=== PATIENT | male | born 1975 | race Caucasian/White ===

== ENCOUNTER 2024-03-06 08:50 | Emergency (ER) | payer OTHER, SELFPAY ==
[2024-03-06 08:56] VITALS: BP 175/104; PULSE 89; TEMP 36.8; O2SAT 100; BMI 35.2
--- NOTE | 2024-03-06 09:04 | XR_ITS ---
The [address] [address] Patient Name: KLEBER MOULTON MRN: [facility]:[id number] date: 1975 Sex: M Assigned Patient Location: ER Current Patient Location: ER Accession/Order Number: [id number] Exam Date: 03/06/2024 09:11 Report Date: 03/06/2024 09:41 At the request of: RENEE SEGURA Procedure: XR hand LT min 3V PROCEDURE: XR wrist LT min 3V, XR hand LT min 3V HISTORY: trauma COMPARISON: None. FINDINGS: BONES:No fracture, acute abnormality, or significant arthropathy. Mild positive ulnar variance (normal variant). SOFT TISSUES:No visible soft tissue swelling. EFFUSION:None visible. OTHER: Negative. XR/XR hand LT min 3V IMPRESSION: 1. No acute bone abnormality. Electronically authenticated by: JENNI RATLIFF Date: 03/06/2024 09:41
--- NOTE | 2024-03-06 09:09 | ED_ITS ---
HPI HPI - General Adult General Chief complaint: Wound/Laceration Stated complaint: upper extremity injury Time Seen by Provider: 03/06/24 09:04 Mode of arrival: walk-in History of Present Illness HPI narrative: The patient is coming to us with a work injury, he was at work when the object he works when it is almost 800 pounds of metal fell on his left hand, he is complaining of left hand pain mostly in the second third and the fourth finger in addition to a laceration to the middle finger of the left hand, the patient also has some left wrist pain There was no other injury and the patient tetanus booster was more than 5 years old Related Data Home Medications ?Medication ?Instructions ?Recorded ?Confirmed amlodipine 10 mg tablet 10 mg PO DAILY 03/06/24 03/06/24 venlafaxine 150 mg 150 mg PO DAILY 03/06/24 03/06/24 capsule,extended release 24 hr Previous Rx's ?Medication ?Instructions ?Recorded ibuprofen 600 mg tablet 600 mg PO Q8H PRN pain #20 tabs 03/06/24 Allergies Allergy/AdvReac Type Severity Reaction Status Date / Time No Known Drug Allergies Allergy Verified 03/06/24 08:56 Opioid HPI Opioid Management Most Recent Opioid Data: Last Pain Scale 6 03/06/24 09:05 03/06/24 Review of Systems ROS Status of ROS 10 or more systems reviewed and unremark able except as noted in history and below PFSH PFSH Social History Little interest or pleasure in doing things: not at all Feeling down, depressed, or hopeless: not at all Exam Narrative Exam Narrative: Nurses notes and vital signs reviewed and patient is not hypoxic. Left hand exam: Left hand examination showed that the patient have no vascular injury detected there is a good capillary refill in all the fingers and there is a small hematoma developing in the left index finger the patient also have a laceration just distal to the proximal interphalangeal joint on the middle finger it is almost 1.5 cm and macerated edges and no foreign body The patient have a good radial pulse on the left forearm and there is no active bleeding Also tenderness upon palpation of the second finger as well as the third and fourth finger where the contusion happened General: Well-appearing and in no apparent distress. Skin: Warm, dry, no pallor noted. No rash. Head: Normocephalic, atraumatic. Neck: Supple, non-tender. Respiratory: No accessory muscle use or respiratory distress. Lungs are clear to auscultation, no wheezing, rales or rhonchi Chest Wall: no tenderness Back: No midline thoracic or lumbar vertebral tenderness. No CVA tenderness Constitutional Vital Signs, click to edit/add: Last Vital Signs Temp 98.2 F 03/06/24 08:56 Pulse 80 03/06/24 10:12 Resp 18 03/06/24 10:12 BP 136/86 03/06/24 10:12 Pulse Ox 98 03/06/24 10:12 O2 Del Method Room Air 03/06/24 08:56 Course Vital Signs Vital signs: Vital Signs Temperature 98.2 F 03/06/24 08:56 Pulse Rate 89 03/06/24 08:56 Respiratory Rate 18 03/06/24 08:56 Blood Pressure 175/104 H 03/06/24 08:56 Pulse Oximetry 100 03/06/24 08:56 Oxygen Delivery Method Room Air 03/06/24 08:56 Temperature 98.2 F 03/06/24 08:56 Pulse Rate 80 03/06/24 10:12 Respiratory Rate 18 03/06/24 10:12 Blood Pressure 136/86 03/06/24 10:12 Pulse Oximetry 98 03/06/24 10:12 Oxygen Delivery Method Room Air 03/06/24 08:56 Medical Decision Making MDM Narrative Medical decision making narrative: X-ray of the right hand and wrist showed no acute pathology The patient was provided with a booster for his tetanus Toradol IM for pain Also a nerve block applied to the left middle finger at the carpal phalangeal joint after cleaning the area applied 2 cc of 1% lidocaine Patient after that needed some local 1% lidocaine also injected to infiltrate the area of the wound The patient then after exploring the wound and making sure the patient have a full range of movement in his finger 3 stitches of 4-0 Prolene applied The patient tolerated the procedure well finger splint applied He will rest his left hand and keep the wound clean and dry for the next 5 to 7 days to remove stitches after 5 to 7 days follow-up with occupational health as outpatient also to rest his hand for the next few days and at least keep the wound clean and dry for the next 7 days Discharge Plan Discharge Chief Complaint: Wound/Laceration Clinical Impression: Laceration, Contusion of hand Patient Disposition: Home, Self-Care Time of Disposition Decision: 10:07 Condition: Good Prescriptions / Home Meds: New ibuprofen 600 mg tablet 600 mg PO Q8H PRN (Reason: pain) Qty: 20 0RF No Action amlodipine 10 mg tablet 10 mg PO DAILY venlafaxine 150 mg capsule,extended release 24hr 150 mg PO DAILY Print Language: Chinese Instructions: Care For Your Stitches (DC), Contusion in Adults (ED) Referrals: Physician,Non-Staff, MD [Primary Care Provider] - 1 week Discharge Date/Time: 03/06/24 10:13
--- NOTE | 2024-03-06 09:09 | XR_ITS ---
The [address] [address] Patient Name: KLEBER MOULTON MRN: [facility]:[id number] date: 1975 Sex: M Assigned Patient Location: ER Current Patient Location: ER Accession/Order Number: [id number] Exam Date: 03/06/2024 09:11 Report Date: 03/06/2024 09:41 At the request of: RENEE SEGURA Procedure: XR wrist LT min 3V PROCEDURE: XR wrist LT min 3V, XR hand LT min 3V HISTORY: trauma COMPARISON: None. FINDINGS: BONES:No fracture, acute abnormality, or significant arthropathy. Mild positive ulnar variance (normal variant). SOFT TISSUES:No visible soft tissue swelling. EFFUSION:None visible. OTHER: Negative. XR/XR wrist LT min 3V IMPRESSION: 1. No acute bone abnormality. Electronically authenticated by: JENNI RATLIFF Date: 03/06/2024 09:41
[2024-03-06] MEDS: ADACEL DIPH,PERTUSS(ACELL),TET VAC/PF 0.5 ML ADULT SYRINGE IM (09:46)
[2024-03-06] MEDS: KETOROLAC TROMETHAMINE 60 MG/2 ML VIAL IM (09:47)
[2024-03-06] MEDS: LIDOCAINE HCL 1% 100 MG/10 ML MDV INJ (09:48)
[2024-03-06 10:12] VITALS: BP 136/86; PULSE 80; O2SAT 98
== END 2024-03-06 10:13 | disposition home or self-care (01) ==
PROVIDERS: Emergency Provider Emergency Medicine
DX: S61.213A Laceration without foreign body of left middle finger without damage to nail, initial encounter (principal); S67.22XA Crushing injury of left hand, initial encounter; S67.193A Crushing injury of left middle finger, initial encounter; S67.195A Crushing injury of left ring finger, initial encounter; Z23 Encounter for immunization; S60.222A Contusion of left hand, initial encounter; W31.89XA Contact with other specified machinery, initial encounter; X58.XXXA Exposure to other specified factors, initial encounter
CPT/HCPCS: 12001; 73110; 73130; 90471; 90715; 96372; 99284; J1885

== ENCOUNTER 2024-12-13 09:16 | Emergency (ER) | payer OTHER, SELFPAY ==
--- OUTSIDE RECORDS SUMMARY | 2024-12-13 09:20 | XMS_ITS | Clinical Summary ---
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 270 tablet 3 01/02/2014 Active lisinopril (ZESTRIL) 20 mg tablet Take 1 tablet by mouth once daily. 90 tablet 3 01/02/2014 Active omeprazole (PRILOSEC) 20 mg capsule Take 1 capsule by mouth once daily. 90 capsule 3 01/02/2014 Active Active Problems Problem Noted Date Diagnosed Date GERD (gastroesophageal reflux disease) 0 Anxiety 09/30/2009 HTN (hypertension) 09/30/2009 Abnormal liver function test Overview (10/08/2009): Ex-Etoh Hyperlipidemia Immunizations Immunization Administration Dates Next Due tetanus diphtheria (Td) vaccine, adult, non-adso rbed 10/10/2009 Family History Medical History Relation Comments Alcohol/Drug Father age 50's ci rrhosis/alcohol use None Maternal Grandfather Old age 90' s None Mother None Other 2 1/2 siblings n o contact None Sister Relation Status Comments Father Maternal Grandfather Mother Other Sister Social History Tobacco Use Types Packs/Day Years Used Date Smoking Tobacco: Every Day Cigarettes 0.5 20 Smokeless Tobacco: Current Alcohol Use Standard Drinks/Week Comments No 0 (1 standard drink = 0.6 oz pur e alcohol) Sex and Gender Information Value Date Recorded Sex Assigned at Not on file Legal Sex Male 8:30 AM EST Gender Identity Not on file Sexual Orientation Not on file 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 Not on file Not on file Not on file Last Filed Vital Signs Vital Sign Reading Time Taken Comments Blood Pressure 122/77 08/05/2013 11:10 AM EDT Pulse 102 08/05/2013 11:10 AM EDT Temperature - - Respiratory Rate 16 06/29/2011 9:22 AM EDT Oxygen Saturation - - Inhaled Oxygen Concentration - - Weight 102.1 kg (225 lb) 08/05/2013 11:10 AM EDT Height 177 cm (5' 9.69 ) 08/22/2012 11:14 AM EDT Body Mass Index 32.58 08/22/2012 11:14 AM EDT Plan of Treatment Health Maintenance Due Date Last Done Comments Anxiety Screening 1992 Depression Screening 1992 HIV Screening 1992 Hepatitis B Vaccine (1 of 3 - 19+ 3-dose series) 1993 DTaP,Tdap,Td Vaccine (1 - Tdap) 10/11/2009 0 Lipid Screening 12/27/2015 12/26/2010, 10/07/2009 CT Colonography 10/14/2019 Cologuard (FIT-DNA) 10/14/2019 Colonoscopy 10/14/2019 Colorectal Cancer Screening 10/14/2019 Diabetes Screening 10/14/2019 12/26/2010, 10/07/2009 Fecal Occult Blood 10/14/2019 Sigmoidoscopy 10/14/2019 Pneumococcal Vaccine: 50+ (1 of 1 - PCV) 2024 Shingrix Vaccine (1 of 2) 2024 Influenza Vaccine (#1) 2024 Hepatitis C Screening Completed 10/21/2009 Procedures Procedure Name Priority Date/Time Associated Diagnosis Comments COMPREHENSIVE METABOLIC PANEL Routine 12/26/2010 10:48 AM EDT HTN (hypertension) Abnormal liver function test LIPID PANEL, FASTING Routine 12/26/2010 10:48 AM EDT HTN (hypertension) HEP REMOTE PANEL BL Routine 10/21/2009 4 :00 PM EDT Nonspecific Abnormal Results of Liver Function Study from Last 3 Months or Most Recently Relevant to Health Maintenance Results * (ABNORMAL) LIPID PANEL BASIC (12/26/2010 10:48 AM EDT) Triglyceride 82 30 - 149 mg/dL [facility] Cholesterol, Total 164 100 - 199 mg/dL [facility] HDL Cholesterol 38(L) >45 mg/dL [facility] VLDL Cholesterol 16 6 - 40 mg/dL [facility] LDL Cholesterol, Calculated 110 60 - 129 mg/dL [facility] Fasting Time 12 hrs [facility] TC:HDL Ratio 4.32 1.00 - 5.00 [facility] LDL:HDL Ratio 2.89 0.50 - 3.55 [facility] Non HDL Cholesterol 126 90 - 159 mg/dL [facility] Blood specimen (specimen) BLOOD SPECIMEN / Unknown 12/26/2010 10:48 AM EDT 12/26/2010 10:51 AM EDT Renetta Guzman MD LABORATORY Final Result Performing Organization Address City/State/[facility] Co de Phone Number [facility] [address] [place] [address] * COMP METABOLIC PANEL (12/26/2010 10:48 AM EDT) Pathologist [facility] Protein, Total 6.6 6.0 - 8.4 g/dL [facility] Albumin 4.0 3.5 - 5.0 g/dL [facility] Calcium 9.2 8.5 - 10.5 mg/dL [facility] Bilirubin, Total 0.2 0.0 - 1.5 mg/dL [facility] Alkaline Phosphatase 76 40 - 150 U/L [facility] AST 26 7 - 40 U/L [facility] Glucose 90 65 - 100 mg/dL [facility] BUN 15 10 - 25 mg/dL [facility] Creatinine 0.79 0.70 - 1.40 mg/dL [facility] Sodium 138 135 - 146 mmol/L [facility] Potassium 4.1 3.5 - 5.0 mmol/L [facility] Chloride 103 98 - 110 mmol/L [facility] CO2 28 23 - 32 mmol/L [facility] Anion Gap 7 0 - 15 mmol/L [facility] ALT 50 5 - 50 U/L [facility] eGFR- >60 [facility] eGFR-All Other Races >60 . [facility] Comment: eGFR (Estimated GFR) Units of measure: mL/min/1.73 meters squared eGFR is derived from the reexpressed MDRD Study equation using the following parameters: serum creatinine, age, gender and race. The creatinine assay has been calibrated to be traceable to IDMS. An eGFR <60 mL/min/1.73m2 for >3 months is consistent with chronic kidney disease. Refer to KDOQI guidelines for clinical interpretation. Blood specimen (specimen) BLOOD SPECIMEN / Unknown 12/26/2010 10:48 AM EDT 12/26/2010 10:51 AM EDT Renetta Guzman MD LABORATORY Final Result Performing Organization Address [facility] Co de Phone Number [facility] [address] [place] [address] * HEP REMOTE PANEL BL (10/21/2009 4:00 PM EDT) Hep B Core Ab, Total Negative NEGAT [facility] Hep C Antibody IA Negative NEGAT [facility] HBsAg Negative NEGAT [facility] Hep B Surface Ab, Qual Negative NEGAT [facility] Comment: A negative Hepatitis B Surface Antibody is indicative of: 1)no prior exposure to HBV, 2)lack of antibody response to an acute or chronic HBV infection, 3)lack of antibody response to HBV vaccination, or, 4)loss of immunity that followed either vaccination or infection. Blood specimen (specimen) BLOOD SPECIMEN / Unknown 10/21/2009 4:00 PM EDT 10/22/2009 1:13 AM EDT us Renetta Guzman MD LABORATORY Final Result Performing Organization Address [facility] Co de Phone Number [facility] [address] [place] [address] from Last 3 Months or Most Recently Relevant to Health Maintenance Insurance [employer]
--- OUTSIDE RECORDS SUMMARY | 2024-12-13 09:20 | XMS_ITS | CCD ---
Author Organization [facility] Inform ion Partnership [facility] Care Team Providers Care Mixing Machine Attendant Name Role Phone MAGDALENO QUEEN Admitting Unavailable MAGDALENO QUEEN Attending Unavailable MAGDALENO QUEEN Consulting Unavailable REQUEST, NONE LISTED Primary Care Unavailable NO FAMILY, PHYSICIAN Primary Care Provider Unava ilable Becki Suarez APRN Attending Provider NO FAMILY, PHYSICIAN Primary Care Unavailable Becki Suarez Attending Unavailable Suarez, Becki D Admitting Unavailable Suarez Becki D Attending Unavailable Suarez Becki D Admitting Unavailable NO FAMILY, PHYSICIAN Primary Care Unavailable Plank DO, Aashish Primary Care Unavailable Plank DO, Aashish Attending Unavailable Plank DO, Aashish Unavailable Unavailable Plank DO, Aashish Unavailable Unavailable Unavailable Unavailable Unavailable Medications Current Medications Medication Drug Class(es) Dates Sig (Normalized) Sig (Original) mirtazapine 7.5 mg oral tablet (2 sources) Start: 02-12-2019 take 1 tablet by mouth once daily at bedtime Mirtazapine 7.5 mg Tablet Active 7.5 MG PO Daily at bedtime 14 February 12, 2019 12:00am Tama (No Known Home Meds) (2 sources) Start: 02-08-2019 Tama (No Known Home Meds) Active February 08, 2019 12:00am 24 hr venlafaxine 75 mg extended release oral capsule (2 sources) Serotonin and Norepinephrine Reuptake Inhibitor Start: 02-12-2019 take 1 capsule by mouth once daily Venlafaxine 75 mg Capsule,Extended Release 24hr Active 75 MG PO Daily February 12, 2019 12:00am Problems Active Problems Problem Classification Problem Date Documented Date Episodic/Chronic Anxiety disorders (6 sources) Posttraumatic stress disorder; Translations: [Anxiety] 02-21-2023 Chronic Comment on above: Problem List clean-u p per request of Phys. EHR Cmte Essential hypertension (2 sources) Essential (primary) hypertension Chronic Malaise and fatigue (2 sources) Chronic fatigue, unspecified; Translations: [Chronic fatigue] Chronic Mood disorders (6 sources) Recurrent major depression; Translations: [Depressive disorder] 02-21-2023 Chronic Comment on above: Problem List clean-u p per request of Phys. EHR Cmte Mood disorders (3 sources) Major depressive disorder, single episode, unspecified; Translations: [Mood disorders] Onset: 02-28-2018 Other nutritional; endocrine; and metabolic disorders (2 sources) Body mass index (BMI) 35.0-35.9, adult Onset: 11-04-2024 11-04-2024 Chronic Other screening for suspected conditions (not mental disorders or infectious disease) (4 sources) Encounter for screening for malignant neoplasm of prostate; Translations: [Prostate cancer screening] Episodic Superficial injury; contusion (1 source) Contusion of left hand, initial encounter; Translations: [Contusion of left hand, initial encounter] Onset: 03-17-2024 Episodic Unclassified (1 source) Annual Visit (chief complaint) Lab Draw (chief complaint) Onset: 11-04-2024 Past or Other Problems Problem Classification Problem Date Documented Da te Episodic/Chronic Fluid and electrolyte disorders (1 source) Hypokalemia; Translations: [HYPOKALEMIA] Onset: 02-28-2018 Episodic Other injuries and conditions due to external causes (1 source) Elevated urine levels of drugs, medicaments and biological substances; Translations: [ELEV URIN LEVELS RX MEDS AND BIO SUBS] Onset: 02-28-2018 Episodic Suicide and intentional self-inflicted injury (3 sources) Suicidal ideations; Translations: [SUICIDAL IDEATIONS] Onset: 02-10-2018 Episodic Results Test Name Value Interpretation Reference Range Facility Laboratory - Chemistry and C hemistry - challengeOrdered By: Aashish Hernandez DO on 11-12-2024 Testosterone Free [Mass/Vol] 2.7 pg/mL Low 7.2-24.0 [facility] 25-hydroxyvitamin D3 [Mass/V ol]Ordered By: Aashish Hernandez DO on 11-05-2024 25-hydroxyvitamin D [Mass/Vol] 36.7 ng/mL 30.0-100.0 [facility] Comment on above: Vitamin D deficiency has been defined by the [place] of[place] and an Endocrine Society practice guideline as alevel of serum 25-OH vitamin D less than 20 ng/mL (1,2).The Endocrine Society went on to further define vitamin Dinsufficiency as a level between 21 and 29 ng/mL (2).1. IOM ([place] of [employer]). 2010. Dietary reference intakes for calcium and D. [place]: The National Academies Press.2. Mike MF, Sam NC, Michaelle GARZA, et al. Evaluation, treatment, and prevention of vitamin D deficiency: an Endocrine Society clinical practice guideline. JCEM. 2010; 96(7):1911-30.Performed by:Leon MEHTA) Comprehensive metabolic 2000 panelOrdered By: Aashish Hernandez DO on 11-05-2024 ALT [Catalytic activity/Vol] 48 U/L High 0-44 [facility] ALP [Catalytic activity/Vol] 92 U/L 44-121 [facility] Comment on above: Effective Septembe r 2024 Alkaline Phosphatase reference interval will be changing to: Age Male Female 0 - 5 days 47 - 127 47 - 127 6 - 10 days 29 - 242 29 - 242 11 - 20 days 109 - 357 109 - 357 21 - 30 days 94 - 494 94 - 494 1 - 2 months 149 - 539 149 - 539 3 - 6 months 131 - 452 131 - 452 7 - 11 months 117 - 401 117 - 401 12 months - 6 years 158 - 369 158 - 369 7 - 12 years 150 - 409 150 - 409 13 years 156 - 435 78 - 227 14 years 114 - 375 64 - 161 15 years 88 - 279 56 - 134 16 years 74 - 207 51 - 121 17 years 63 - 161 47 - 113 18 - 20 years 51 - 125 42 - 106 21 - 50 years 47 - 123 41 - 116 51 - 80 years 49 - 135 51 - 125 >80 years 48 - 129 48 - 129Performed by:Leon Stanton (TIFFANIE) Bilirubin [Mass/Vol] 0.5 mg/dL 0.0-1.2 [facility] Creatinine [Mass/Vol] 0.93 mg/dL 0.76-1.27 [facility] GFR/1.73 sq M.predicted among non-blacks MDRD (S/P/Bld) [Vol rate/Area] 100 mL/min/{1.73_m2} >59 [facility] Globulin (S) [Mass/Vol] 2.9 g/dL 1.5-4.5 [facility] Glucose [Mass/Vol] 95 mg/dL 70-99 [facility] Protein [Mass/Vol] 7.8 g/dL 6.0-8.5 [facility] Urea nitrogen [Mass/Vol] 18 mg/dL 6-24 [facility] Urea nitrogen/Creatinine [Mass ratio] 19 mg/mg 9-20 [facility] Albumin [Mass/Vol] 4.9 g/dL 4.1-5.1 [facility] AST [Catalytic activity/Vol] 31 U/L 0-40 [facility] Calcium [Mass/Vol] 10.1 mg/dL 8.7-10.2 [facility] CO2 [Moles/Vol] 21 mmol/L 20-29 [facility] Potassium [Moles/Vol] 3.8 mmol/L 3.5-5.2 [facility] Sodium [Moles/Vol] 138 mmol/L 134-144 [facility] Chloride [Moles/Vol] 102 mmol/L 96-106 [facility] Laboratory - Chemistry and C hemistry - challengeOrdered By: Aashish Hernandez DO on 11-05-2024 Cobalamin (Vitamin B12) [Mass/Vol] 563 pg/mL 232-1245 [facility] Folate [Mass/Vol] 8.5 ng/mL >3.0 [facility] Comment on above: A serum folate ba ntration of less than 3.1 ng/mL isconsidered to represent clinical deficiency.Performed by:[employer]diana Stanton (TIFFANIE) Free PSA [Mass/Vol] 0.42 ng/mL N/A [facility] Comment on above: Nate ECLIA methodol ogy.Performed by:[employer]diana Stanton (TIFFANIE) Free PSA/Total PSA [Mass fraction] 12.7 % [facility] Comment on above: The table below list s the probability of prostate cancer formen with non-suspicious CINTHYA results and total PSA between4 and 10 ng/mL, by patient age (Elia et al, NIKOLE 1998,279:1542). % Free PSA 50-64 yr 65-75 yr 0.00-10.00% 56% 55% 10.01-15.00% 24% 35% 15.01-20.00% 17% 23% 20.01-25.00% 10% 20% >25.00% 5% 9%Please note: Elia et al did not make specific recommendations regarding the use of percent free PSA for any other population of men.Performed by:[facility] (TIFFANIE) Prostate specific Ag [Mass/Vol] 3.3 ng/mL 0.0-4.0 [facility] Comment on above: [employer] ECLIA methodol ogy. According to the [place] [employer], Serum PSA shoulddecrease and remain at undetectable levels after radicalprostatectomy. The AUA defines biochemical recurrence as an initialPSA value 0.2 ng/mL or greater followed by a subsequent confirmatoryPSA value 0.2 ng/mL or greater.Values obtained with different assay methods or kits cannot be usedinterchangeably. Results cannot be interpreted as absolute evidenceof the presence or absence of malignant disease.Performed by:[facility] (TIFFANIE) Testosterone [Mass/Vol] 309 ng/dL 264-916 [facility] Comment on above: Adult male reference interval is based on a population ofhealthy nonobese males (BMI <30) between 19 and 39 years old.Josh et.al. JCEM 2017,102;3887-8214. PMID: [id number].Performed by:[facility] (TIFFANIE) Free T4 [Mass/Vol] 1.21 ng/dL 0.82-1.77 [facility] TSH Qn 4.850 uIU/mL High 0.450-4.500 [facility] Cholesterol in HDL [Mass/Vol] 56 mg/dL >39 [facility] Cholesterol in LDL [Mass/Vol] 136 mg/dL High 0-99 [facility] Cholesterol in LDL/Cholesterol in HDL [Mass ratio] 2.4 {ratio} 0.0-3.6 [facility] Comment on above: LDL/HDL Ratio Men Wo men 1/2 Avg.Risk 1.0 1.5 Avg.Risk 3.6 3.2 2X Avg.Risk 6.2 5.0 3X Avg.Risk 8.0 6.1Performed by:Labcodiana Stanton (CB) Cholesterol in VLDL [Mass/Vol] 17 mg/dL 5-40 [facility] Cholesterol [Mass/Vol] 209 mg/dL High 100-199 [facility] Triglyceride [Mass/Vol] 95 mg/dL 0-149 [facility] Laboratory - Hematology and Cell countsOrdered By: Aashish Hernandez DO on 11-05-2024 Basophils (Bld) [#/Vol] 0.1 10*3/uL 0.0-0.2 [facility] Basophils/100 WBC (Bld) 1 % Not Estab. [facility] Eosinophils (Bld) [#/Vol] 0.1 10*3/uL 0.0-0.4 [facility] Eosinophils/100 WBC (Bld) 1 % Not Estab. [facility] Erythrocyte distribution width (RBC) [Ratio] 12.4 % 11.6-15.4 [facility] Hematocrit (Bld) [Volume fraction] 47.7 % 37.5-51.0 [facility] Hemoglobin (Bld) [Mass/Vol] 16.4 g/dL 13.0-17.7 [facility] Immature granulocytes (Bld) [#/Vol] 0.1 10*3/uL 0.0-0.1 [facility] Immature granulocytes/100 WBC (Bld) 1 % Not Estab. [facility] Lymphocytes (Bld) [#/Vol] 3.6 10*3/uL High 0.7-3.1 [facility] Lymphocytes/100 WBC (Bld) 36 % Not Estab. [facility] MCH (RBC) [Entitic mass] 31.1 pg 26.6-33.0 [facility] MCHC (RBC) [Mass/Vol] 34.4 g/dL 31.5-35.7 [facility] MCV (RBC) [Entitic vol] 90 fL 79-97 [facility] Monocytes (Bld) [#/Vol] 1.0 10*3/uL High 0.1-0.9 [facility] Monocytes/100 WBC (Bld) 10 % Not Estab. [facility] Neutrophils (Bld) [#/Vol] 5.1 10*3/uL 1.4-7.0 [facility] Neutrophils/100 WBC (Bld) 51 % Not Estab. [facility] Platelets (Bld) [#/Vol] 282 10*3/uL 150-450 [facility] RBC (Bld) [#/Vol] 5.28 10*6/uL 4.14-5.80 [facility] WBC (Bld) [#/Vol] 9.9 10*3/uL 3.4-10.8 [facility] Urate [Mass/volume] in Serum or PlasmaOrdered By: Aashish Hernandez DO on 11-05-2024 Urate [Mass/Vol] 6.4 mg/dL 3.8-8.4 [facility] Comment on above: Therapeutic target f or gout patients: <6.0Performed by:[facility] Maximino (TIFFANIE) Lab - Toxicology Resultson 0 10-28-2018 Lab - Toxicology Results [id number] #[id number] Normal [facility] ACETAMINOPHENon 02-10-2018 Acetaminophen [Mass/Vol] <0.1 Critically low 10.1-30.0 [place] Comment on above: Performed By: #### A CET, SALYC, CMP #### [facility] [address], [place] [address] Tatum Renea CBC AUTO DIFFon 02-10-2018 Basophils (Bld) [#/Vol] 0.1 103/ul Normal 0.0-0.1 [place] Comment on above: Performed By: #### C BC #### [facility] [address], [place] [address] Tatum Renea Basophils/100 WBC (Bld) 0.6 % Normal 0.2-2.0 [place] Comment on above: Performed By: #### C BC #### [facility] [address], [place] [address] Tatum Renea Eosinophils (Bld) [#/Vol] 0.1 103/ul Normal 0.0-0.7 [place] Comment on above: Performed By: #### C BC #### [facility] [address], [place] [address] Tatum Renea Eosinophils/100 WBC (Bld) 0.7 % Critically low 0.9-7.0 [place] Comment on above: Performed By: #### C BC #### [facility] [address] [place] [id number] Tatum Renea Erythrocyte distribution width (RBC) [Ratio] 11.9 % Normal 11.0-15.0 [place] Comment on above: Performed By: #### C BC #### [facility] [address] [place], [place] [phone] Tatum Renea Hematocrit (Bld) [Volume fraction] 46.5 % Normal 42.0-54.0 [place] Comment on above: Performed By: #### C BC #### [facility] [address] [id number] Tatum Renea Hemoglobin (Bld) [Mass/Vol] 16.6 g/dL Normal 14.0-18.0 [place] Comment on above: Performed By: #### C BC #### [facility] [address] [place], [place] [phone] Tatum Renea IG # 0.09 10e3/ul Critically high 0.00-0.03 [facility] Comment on above: Performed By: #### C BC #### [facility] [address] [id number] Tatum Renea IG % 1.0 % Critically high 0.0-0.5 [facility] Comment on above: Performed By: #### C BC #### [facility] [address] [id number] Tatum Renea Lymphocytes (Bld) [#/Vol] 3.1 103/ul Normal 1.2-3.8 [facility] Comment on above: Performed By: #### C BC #### [facility] [address], [place] [address] Tatum Renea Lymphocytes/100 WBC (Bld) 32.5 % Normal 20.5-60.0 [place] Comment on above: Performed By: #### C BC #### [facility] [address], [place] [address] Tatum Renea MANUAL DIFF REQ NO Normal [facility] Comment on above: Performed By: #### C BC #### [facility] [address], [place] [address] Tatum Renea MCH (RBC) [Entitic mass] 31.5 pg Normal 25.9-34.0 [facility] Comment on above: Performed By: #### C BC #### [facility] [address] [place] [address] Tatum Renea MCHC (RBC) [Mass/Vol] 35.7 g/dL Critically high 29.9-35.2 [place] Comment on above: Performed By: #### C BC #### [facility] [address] [place] [address] Tatum Renea MCV (RBC) [Entitic vol] 88.2 fL Normal 80.0-94.0 [place] Comment on above: Performed By: #### C BC #### [facility] [address] [place] [address] Tatum Renea Monocytes (Bld) [#/Vol] 0.7 103/ul Normal 0.3-0.8 [facility] Comment on above: Performed By: #### C BC #### [facility] [address] [place] [address] Tatum Renea Monocytes/100 WBC (Bld) 7.1 % Normal 1.7-12.0 [facility] Comment on above: Performed By: #### C BC #### [facility] [address] [place] [address] Tatum Renea Neutrophils (Bld) [#/Vol] 5.4 103/ul Normal 1.4-6.5 [facility] Comment on above: Performed By: #### C BC #### [facility] [address] [phone] Tatumchucky Meier Neutrophils/100 WBC (Bld) 58.1 % Normal 43.0-75.0 [place] Comment on above: Performed By: #### C BC #### [facility] [address] [phone] Tatum Renea Platelet mean volume (Bld) [Entitic vol] 9.2 fL Critically low 9.5-13.5 [place] Comment on above: Performed By: #### C BC #### [facility] [address] [phone] Tatum Renea Platelets (Bld) [#/Vol] 266 103/ul Normal 150-450 [place] Comment on above: Performed By: #### C BC #### [facility] [address] [place], [place] [phone] Tatum Renea RBC (Bld) [#/Vol] 5.27 106/ul Normal 4.70-6.[address] [facility] Comment on above: Performed By: #### C BC #### [facility] [address] [phone] Tatum Renea WBC (Bld) [#/Vol] 9.4 103/ul Normal 4.0-11.0 [facility] Comment on above: Performed By: #### C BC #### [facility] [address] [phone] Tatum Meier DRUG SCREEN RAPID (URINE)on 02-10-2018 AMP Negative Normal NEGATIVE [place] Comment on above: Performed By: #### D RUGRPD #### [facility] [address] [phone] Tatum Renea BAR Negative Normal NEGATIVE [place] Comment on above: Performed By: #### D RUGRPD #### [facility] [address] [place], [place] [phone] Tatum Renea BUP Negative Normal NEGATIVE [place] Comment on above: Performed By: #### D RUGRPD #### [facility] [address] [place] [address] Tatum Renea BZO Negative Normal NEGATIVE [facility] Comment on above: Performed By: #### D RUGRPD #### [facility] [address] [place] [address] Tatum Renea JOSHUA Negative Normal NEGATIVE [facility] Comment on above: Performed By: #### D RUGRPD #### [facility] [address] [place] [address] Tatum Renea CUT-OFFS SEE BELOW Normal [facility] Comment on above: Result Comment: AMP (Amphetamine): 500ng/mL, BAR (Barbituates): 200 ng/mL, BZO (Benzodiazepines): 150 ng/mL, BUP (Buprenorphine): 10 ng/mL, JOSHUA (Cocaine): 150 ng/mL, mAMP (Methamphetamine): 500 ng/mL, MTD (Methadone): 200 ng/mL, OPI (Opiates): 100 ng/mL or 2000 ng/mL, OXY (Oxycodone): 100 ng/mL, PCP (Phencyclidine): 25 ng/mL, PPX (Propoxyphene): 300 ng/mL, THC (Cannabinoids): 50 ng/mL, TCA (Trycyclic Antidepressants): 300 ng/mL Performed By: #### D RUGRPD #### [facility] [address] [place] [address] DRUG CUT HEADER DRUG CLASS TEST SYSTEM CUT-OFF CONCENTRATIONS ARE FOLLOWS: Normal [facility] Comment on above: Performed By: #### D RUGRPD #### [facility] [address] [place] [address] Tatum Renea mAMP Negative Normal NEGATIVE [facility] Comment on above: Performed By: #### D RUGRPD #### [facility] [address] [place] [address] Tatum Renea MTD Negative Normal NEGATIVE [facility] Comment on above: Performed By: #### D RUGRPD #### [facility] [address] [place] [address] Tatum Renea OPI Negative Normal NEGATIVE [facility] Comment on above: Performed By: #### D RUGRPD #### [facility] [address] [place] [address] Tatum Renea OXY Negative Normal NEGATIVE [facility] Comment on above: Performed By: #### D RUGRPD #### [facility] [address] [place] [address] Tatum Ernea PCP Negative Normal NEGATIVE [place] Comment on above: Performed By: #### D RUGRPD #### [facility] [address] [place] [address] Tatum Renea PPX Negative Normal NEGATIVE [facility] Comment on above: Performed By: #### D RUGRPD #### [facility] [address] [place] [address] Tatum Renea TCA Negative Normal NEGATIVE [facility] Comment on above: Performed By: #### D RUGRPD #### [facility] [address] [place] [address] Tatum Renea THC Positive Normal NEGATIVE [facility] Comment on above: Performed By: #### D RUGRPD #### [facility] [address] [place] [address] Tatumchucky Wooen ER URINE PROFILEon 8 Bilirubin [Mass/Vol] Negative Normal NEGATIVE [place] Comment on above: Performed By: #### E RUR #### [facility] [address] [place] [address] Tatum Renea BLOOD Negative Normal NEGATIVE [facility] Comment on above: Performed By: #### E RUR #### [facility] [address] [place] [address] Tatum Renea Clarity (U) CLEAR Normal [place] Comment on above: Performed By: #### E RUR #### [facility] [address] [place] [address] Tatum Renea Color (U) LT. YELLOW Normal YELLOW [facility] Comment on above: Performed By: #### E RUR #### [facility] [address] [place] [address] Tatum Renea ERUAHD A micrscopic examination will be performed if indicated. Normal [facility] Comment on above: Performed By: #### E RUR #### [facility] [address] [place], [place] [phone] Tatum Renea Glucose [Mass/Vol] Negative Normal NEGATIVE [facility] Comment on above: Performed By: #### E RUR #### [facility] [address] [place] [address] Tatum Renea Ketones Ql (U) Negative Normal NEGATIVE [facility] Comment on above: Performed By: #### E RUR #### [facility] [address] [place] [address] Tatum Renea Nitrite Ql (U) Negative Normal NEGATIVE [facility] Comment on above: Performed By: #### E RUR #### [facility] [address] [place] [address] Tatum Renea pH (Bld) 5.5 Normal 5-9 [place] Comment on above: Performed By: #### E RUR #### [facility] [address] [place] [address] Tatum Renea Protein (U) [Mass/Vol] Negative Normal Th [facility] Comment on above: Performed By: #### E RUR #### [facility] [address] [place] [address] Tatum Renea SPEC GRAVITY <=1.005 Normal 1.005-<=1.025 [facility] Comment on above: Performed By: #### E RUR #### [facility] [address] [place] [address] Tatum Renea UR MICRO IND NOT INDICATED Normal [facility] Comment on above: Performed By: #### E RUR #### [facility] [address] [place] [address] Tatum Renea Urobilinogen Qn (U) 0.2 EU/dl Normal [facility] Comment on above: Performed By: #### E RUR #### [facility] [address] [place], [place] [phone] Tatum Renea WBC (Bld) [#/Vol] Negative Normal NEGATIVE [facility] Comment on above: Performed By: #### E RUR #### [facility] [address] [place] [address] Tatum Meier ETHANOL (BLD ALC)on 02-11-20 18 Ethanol [Mass/Vol] NOTE: 80 mg/dl is the legal limit for a blood alcohol level Normal [place] Comment on above: Performed By: #### E TH #### [facility] [address] [place], [place] [address] Tatumchucky Meier Ethanol [Mass/Vol] 56 mg/dL Normal [facility] Comment on above: Performed By: #### E TH #### [facility] [address] [place], [place] [address] Tatum Meier PROF 14(COMP METB)on 018 Albumin [Mass/Vol] 4.3 g/dL Normal 3.5-5.[address] [facility] Comment on above: Performed By: #### A STEVE GARRISON, CMP #### [facility] [address] [place] [address] Tatumchucky Meier Albumin/Globulin [Mass ratio] 1.0 {ratio} Normal [place] Comment on above: Performed By: #### A STEVE GARRISON, CMP #### [facility] [address] [place] [address] Tatum Renea ALP [Catalytic activity/Vol] 101 U/L Normal 38-126 [place] Comment on above: Performed By: #### A STEVE GARRISON, CMP #### [facility] Laboratory [address] [place] [address] Tatum Renea ALT [Catalytic activity/Vol] 92 U/L Critically high 21-72 [place] Comment on above: Performed By: #### A STEVE GARRISON, CMP #### [facility] [address] [place], [place] [id number] Tatum Renea Anion gap [Moles/Vol] 15.9 mmol/L Normal [facility] Comment on above: Performed By: #### A STEVE GARRISON, CMP #### [facility] [address] [place], [place] [id number] Tatum Renea AST [Catalytic activity/Vol] 42 U/L Normal 17-59 [place] Comment on above: Performed By: #### A STEVE GARRISON, CMP #### [facility] [address] [address] Tatum Renea Bilirubin Ql (U) 0.4 mg/dL Normal 0.2-1.3 [facility] Comment on above: Performed By: #### A STEVE GARRISON, CMP #### [facility] [address] [place] [address] Tatum Renea Calcium [Mass/Vol] 9.4 mg/dL Normal 8.4-10.[address] [facility] Comment on above: Performed By: #### A STEVE GARRISON, CMP #### [facility] [address] [place] [address] Tatum Renea Chloride [Moles/Vol] 103 mmol/L Normal 98-107 [facility] Comment on above: Performed By: #### A STEVE GARRISON, CMP #### [facility] [address] [place] [address] Tatum Renea CO2 [Moles/Vol] 22.4 mmol/L Normal 22.0-30.0 [facility] Comment on above: Performed By: #### A STEVE GARRISON, CMP #### [facility] [address] [place] [address] Tatum Renea Creatinine [Mass/Vol] 0.91 mg/dL Normal 0.66-1.25 [facility] Comment on above: Performed By: #### A STEVE GARRISON, CMP #### [facility] [address] [place] [address] Tatum Renea EGFR-AF IRANIAN >60 Normal >=60 [facility] Comment on above: Performed By: #### A STEVE GARRISON, CMP #### [facility] [address] [place] [address] Tatum Renea EGFR-NON AF IRANIAN >60 Normal >=60 [facility] Comment on above: Performed By: #### A STEVE GARRISON, CMP #### [facility] [address] [place] [address] Tatum Renea Globulin (S) [Mass/Vol] 4.2 g/dL Normal [place] Comment on above: Performed By: #### A STEVE GARRISON, CMP #### [facility] [address] [place] [address] Tatum Renea Glucose [Mass/Vol] 97 mg/dL Normal 74-106 [facility] Comment on above: Performed By: #### A STEVE GARRISON, CMP #### [facility] [address] [place] [address] Tatum Renea Potassium [Moles/Vol] 3.3 mmol/L Critically low 3.4-5.0 [place] Comment on above: Performed By: #### A STEVE GARRISON, CMP #### [facility] [address] [place] [address] Tatum Renea Protein [Mass/Vol] 8.5 g/dL Critically high 6.1-8.2 [facility] Comment on above: Performed By: #### A STEVE GARRISON, CMP #### [facility] [address] [place] [address] Tatum Renea Sodium [Moles/Vol] 138 mmol/L Normal 137-145 [facility] Comment on above: Performed By: #### A STEVE GARRISON, CMP #### [facility] [address] [place] [address] Tatum Renea Urea nitrogen [Mass/Vol] 9.0 mg/dL Normal 9.0-20.0 [facility] Comment on above: Performed By: #### A STEVE GARRISON, CMP #### [facility] [address] [place] [address] Tatum Renea Urea nitrogen/Creatinine [Mass ratio] 9.9 mg/mg Normal [place] Comment on above: Performed By: #### A STEVE GARRISON, CMP #### [facility] [address] [place] [address] Tatum Renea SALICYLATEon 02-10-2018 SALICYLATE 2.5 mg/dL Normal <=20.0 [facility] Comment on above: Performed By: #### A STEVE GARRISON, CMP #### [facility] [address] [id number] Tatum Meier Vital Signs Date Time Vital Sign Value Performing Clinician Juan Ramon killian 11-04-2024 16:20-0400 Body height 177.8 cm Aashish Plank DO Work Phone: [facility] 11-04-2024 16:20-0400 Body mass index (BMI) [Ratio] 35.3 kg/m2 Aashish Plank DO Work Phone: [facility] 11-04-2024 16:20-0400 Body surface area Derived from formula 2.35 m2 Aashish Plank DO Work Phone: [facility] 11-04-2024 16:20-0400 Body temperature 97.7 [degF] Aashish Plank DO Work Phone: [facility] 11-04-2024 16:20-0400 Body weight 111.58 kg Aashish Plank DO Work Phone: [facility] 11-04-2024 16:20-0400 Diastolic blood pressure 84 mm[Hg] Aashish Plank DO Work Phone: [facility] 11-04-2024 16:20-0400 Heart rate 71 /min Aashish Plank DO Work Phone: [facility] 11-04-2024 16:20-0400 Respiratory rate 16 /min Aashish Plank DO Work Phone: [facility] 11-04-2024 16:20-0400 SaO2% (BldA) [Mass fraction] 98 % Aashish Plank DO Work Phone: [facility] 11-04-2024 16:20-0400 Systolic blood pressure 136 mm[Hg] Aashish Plank DO Work Phone: [facility] Encounters Encounter Date Encounter Type Care Provider Facility Start: 11-13-2024 End: 11-13-2024 Encounter identifier Aashish Plank DO Work Phone: [facility] Start: 11-13-2024 ambulatory Aashish Hernandez DO [facility] Start: 11-04-2024 End: 11-04-2024 Office outpatient visit 25 minutes Aashish Hernandez DO Work Phone: [facility] Start: 03-17-2024 End: 03-17-2024 ambulatory PHYSICIAN NO [facility] Work Phone: Start: 03-17-2024 End: 03-17-2024 Patient encounter procedure PHYSICIAN NO [facility] [address] Work Phone: Start: 03-07-2024 End: 03-07-2024 ambulatory PHYSICIAN NO [facility] Work Phone: Start: 03-07-2024 End: 03-07-2024 Patient encounter procedure PHYSICIAN NO [facility] [address] Work Phone: Start: 02-10-2018 End: 02-11-2018 Patient encounter procedure MAGDALENO QUEEN Facility:H1 Procedures Date Procedure Procedure Detail Performing Clinician Start: 11-05-2024 End: 11-05-2024 Lipid panel Aashish Hernandez DO Work Phone: Start: 11-04-2024 End: 11-04-2024 Collection venous blood venipuncture Aashish Hernandez DO Work Phone: Start: 11-04-2024 End: 11-04-2024 DIAST BP 80-89 MM HG Aashish Plank DO Work Phone: Start: 11-04-2024 End: 11-04-2024 Documentation of current medications Aashish Hernandez DO Work Phone: Start: 11-04-2024 End: 11-04-2024 History of Tobacco use Narrative Aashish Hernandez DO Work Phone: Start: 11-04-2024 End: 11-04-[address]D IN [address] Aashish Hernandez DO Work Phone: Start: 11-04-2024 End: 11-04-2024 RVW MEDS BY RX/DR IN RCRD Aashish Hernandez DO Work Phone: Start: 11-04-2024 End: 11-04-2024 Scr dep neg, no plan reqd Aashish Hernandez DO Work Phone: Start: 11-04-2024 End: 11-04-2024 SYST BP >=130-139MM HG Aashish Hernandez DO Work Phone: Start: 11-04-2024 End: 11-04-2024 Tobacco User Not Consuled Aashish Hernandez DO Work Phone: Plan of Treatment Date Care Activity Detail Author Start: 02-03-2025 Milan Jones [facility] Work Phone: Start: 11-13-2024 [facility] Work Phone: Start: 11-04-2024 Lifestyle education regarding diet Lifestyle education regarding diet [facility] Start: 11-04-2024 End: 11-04-2024 [facility] Work Phone: Payers Date Payer Category Payer Self-pay [id number] 2024 Unknown [id number] 2023 Unknown [id number] 1975 Unknown [id number] 1975 Unknown [id number] 1959 Unknown [id number] Private Health Insurance [id number] Unknown [id number] Unknown [id number] [id number] [id number] Unknown [id number] [id number] [id number] Social History Date Type Detail Facility Tobacco smoking stat us TNIS Unknown if ever smoked [facility] Start: 1975 Sex Assigned At Male F [facility] Start: 02-09-2019 Tobacco smoking stat us TNIS Smoker (finding) [facility] Start: 03-26-2024 End: 03-28-2024 Sex Female (finding) [facility] Start: 11-04-2024 End: 11-13-2024 Tobacco smoking status NHIS Unknown if ever smoked [facility] Start: 11-04-2024 Alcohol intake (observable entity) Alcohol Use Details [facility] Start: 11-04-2024 History of tobacco use Light c igarette smoker (1-9 cigs/day) [facility] Start: 11-04-2024 Tobacco use and exposure Smoking Tobacco Use Details [facility] Sexual Orientation Straight or heterosexu al [facility] Work Phone: Start: 10-12-2017 Gender identity Male [place] [facility] Goals Date Patient Goal Desired Activity /State Clinical Notes 11-04-2024 Note Date & Type Note Facility 11-04-2024 Evaluation note Type assessment Chronic fatigue assessment Body mass index [BMI] 35.0-35.9, adult assessment Essential (primary) hypertension assessment Depression, unspecified 025 assessment Prostate cancer screening assessment Lipid screening impression controlled no changes impression controlled no changes impression ck psa impression ck lipids [facility] Work Phone: [phone] History of Present illness Narrative* Encounter Date Complaint History Of Prese nt Illness Lab Draw Lab draw x1 atte mpt RAC, 2x2 and bandage applied. Patient tolerated well.//RHETT Ann Annual Visit Patient is here for annual visit. Patient states he is needing medication refills. Denies any chest pain, headaches, blurred vision. Patient states he has been having issues with erection. Denies other concerns at this time. Patient denies use of tobacco. Patient occasionally smokes marijuana and drinks alcohol.//RHETT Ann [facility] Work Phone: [phone] Instructions* Date Instruction Additional Infor mation Giving encouragement to exercise Related to Body mass index [BMI] 35.0-35.9, adult Lifestyle education regarding di et Related to Body mass index [BMI] 35.0-35.9, adult [facility] Work Phone: Consult note* Clinical Note Date No Information [facility] Work Phone: Discharge summary* Clinical Note Date No Information [facility] Work Phone: Evaluation noteNo assessment information available [facility] Work Phone: Evaluation note* Type Assessment Date No Information [facility] Work Phone: History and physical note* Clinical Note Date No Information [facility] Work Phone: History of Past illness Narrative* Condition Effective Dates (start - stop) O utcome No Information [facility] Work Phone: History of Present illness Narrative* Encounter Date Complaint History Of Prese nt Illness No Information [facility] Work Phone: Instructions* Date Instruction Additional Infor mation No Information [facility] Work Phone: Progress note* Clinical Note Date No Information [facility] Work Phone: Reason for referral (narrative)* Reason For Referral No Information [facility] Work Phone: Review of systems Narrative - Reported* System Pos/Neg Findings No Information [facility] Work Phone: Summary Purpose Family History Family Member Type Diagnosis Age At Onset Mother Problem (finding) Alive and well Mother Problem Mental illness Father Problem (finding) Hepatitis B Mother Problem migraine Father Problem (finding) Hepatitis C (Cause Of D eath) Father Problem hypertension Advance Directives Advance Directive Response Recorded Date/ Time Advance Directives No January 4:55pm Directive Yes / No Effective Date File Name No Information Assessments No Assessments Information Available Chief Complaint and Reason for Visit Chief Complaint Admit Date S60.222A, S6.A March 07, 2024 3:30pm Chief Complaint Admit Date S60.222A, S61.213A March 07, 2024 3:30pm S60.222A, S61.213A March 17, 2024 12 :30pm Physical Exam Exam Findings Details Eyes Normal Conjunctiva - Ri ght: Normal, Left: Normal. Pupil - Right: Normal, Left: Normal. Ears Normal Inspection - Rig ht: Normal, Left: Normal. Hearing - Right: Normal, Left: Normal. Nose/Mouth/Throat Normal External nose - Normal. Respiratory Normal Auscultation - N ormal. Abdomen Normal No abdominal ten derness. Skin Normal Inspection - Nor mal. Neurological Normal Memory - Normal. Cranial nerves - Cranial nerves II through XII grossly intact. Psychiatric Normal Orientation - Or iented to time, place, person & situation. Appropriate mood and affect. Normal insight. Normal judgment. Cardiovascular Normal Regular rate and rhythm. No murmurs, gallops, or rubs. Exam Findings Details No Information Additional Source Comments (unrecognized sect ion and content) No Status Records FoundNo Status Records FoundNo Status Records FoundNo Status Records Found INFORMATION SOURCE (unrecogn ized section and content) DATE CREATED AUTHOR [facility]2018 [facility] DATE CREATED AUTHOR AUTHOR'S ORGANIZ ATION 12/22/2018 [facility] DATE CREATED AUTHOR AUTHOR'S ORGANIZ ATION 04/02/2024 [facility] DATE CREATED AUTHOR AUTHOR'S ORGANIZ ATION 11/15/2024 [facility] Care Teams (unrecognized sec tion and content) Team Status: Active Member Role Status Dates PHYSICIAN NO FAMILY Primary Care Provider Active Team Status: Inactive Member Role Status Dates PHYSICIAN NO FAMILY Primary Care Provider Active Start: March 07, 2024 End: March 07, 2024 Becki Suarez APRN Attending Provider Active Start: March 07, 2024 End: March 07, 2024 Team Status: Inactive Member Role Status Dates PHYSICIAN NO FAMILY Primary Care Provider Active Start: March 17, 2024 End: March 17, 2024 Becki Suarez APRN Attending Provider Active Start: March 17, 2024 End: March 17, 2024 Name Effective Dates (start - stop) Status Members No Information Goals (unrecognized section and content) Health Concern Goal Type Priority Status No Information FOR RECORDS PERTAINING TO PATIENTS WHO ARE OR HAVE BEEN ENROLLED IN A CHEMICAL DEPENDENCY/SUBSTANCEABUSE PROGRAM, SOME INFORMATION MAY BE OMITTED. This clinical summary was aggregated from multiple sources. Caution should be exercised in using it in the provision of clinical care. This summary normalizes information from multiple sources, and as a consequence, information in this document may materially change the coding, format and clinical context of patient data. In addition, data may be omitted in some cases. CLINICAL DECISIONS SHOULD BE BASED ON THE PRIMARY CLINICAL RECORDS. [employer] provides no warranty or guarantee of the accuracy or completeness of information in this document.
--- OUTSIDE RECORDS SUMMARY | 2024-12-13 09:20 | XMS_ITS | Clinical Summary ---
Author Organization [facility] Address [id number] [address] [place] [address] Care Team Providers Care Distribution District Supervisor Name Role Phone No Pcp, No Pcp Primary Care Provider Unavailabl e Allergies No known active allergies Medications * This document contains information received from the source organization and may not represent a complete record from that organization. venlafaxine (EFFEXOR) 50 mg tablet Take 50 mg by mouth in the morning and 50 mg before bedtime. Active ibuprofen (ADVIL,MOTRIN) 800 mg tablet Take 1 tablet (800 mg total) by mouth in the morning and 1 tablet (800 mg total) at noon and 1 tablet (800 mg total) before bedtime. 21 tablet 07/27/2021 Active cyclobenzaprine (FLEXERIL) 10 mg tablet Take 1 tablet (10 mg total) by mouth as needed in the morning and 1 tablet (10 mg total) as needed in the evening for muscle spasms. 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 Social History Tobacco Use Types Packs/Day Years Used Date Smoking Tobacco: Never Assessed Childcare Answer Date Recorded Childcare Unknown 08/22/2018 Employment Answer Date Recorded Employment Unknown 08/22/2018 Purpose - Life Answer Date Recorded Purpose and direction in life Unknown Sex and Gender Information Value Date Recorded Sex Assigned at Not on file Legal Sex Male 6:56 AM EST Gender Identity Not on file Sexual Orientation Not on file Last Filed Vital Signs Vital Sign Reading Time Taken Comments Blood Pressure 129/94 07/27/2021 10:37 AM EDT Pulse 93 07/27/2021 9:10 AM EDT Temperature 36.7 C (98 F) 07/27/2021 9:10 AM EDT Respiratory Rate 20 07/27/2021 9:10 AM EDT Oxygen Saturation 97% 07/27/2021 9:10 AM EDT Inhaled Oxygen Concentration - - Weight 108.9 kg (240 lb) 07/27/2021 9:10 AM EDT Height 177.8 cm (5' 10 ) 07/27/2021 9:10 AM EDT Body Mass Index 34.44 07/27/2021 9:10 AM EDT Plan of Treatment Health Maintenance Due Date Last Done Comments Depression Screening 1986 Tobacco Screening 1986 Adult BMI Screening 1992 DTaP,Tdap and Td Vaccines (1 - Tdap) 10/11/2009 080 03/2009 Zoster (Shingles) Vaccine (1 of 2) 2024 COVID-19 Vaccine (3 - season) 2024, 07/09/2020 Influenza Vaccine 11/10/2024 Medical Devices Not on file Insurance [facility] Advance Directives * Full Code (Latest Code Status on File) Date Activated Date Inactivated Comments 02/11/2018 11:53 AM 02/15/2018 1:45 PM Care Teams Distribution District Supervisor Relationship Specialty Start Date End Date No Pcp, [place] [id number] PCP - General Family Medicine 07/27/21
[2024-12-13 09:33] VITALS: BP 143/90; PULSE 62; TEMP 36.9; O2SAT 99; BMI 34.4
--- NOTE | 2024-12-13 09:59 | CT_ITS ---
The [address] [address] Patient Name: KLEBER MOULTON MRN: [facility]:[id number] date: 1975 Sex: M Assigned Patient Location: ER Current Patient Location: ED.MAIN Accession/Order Number: [id number] Exam Date: 12/13/2024 10:10 Report Date: 12/13/2024 11:03 At the request of: RENEE SEGURA MD Procedure: CT abdomen pelvis wo con CT ABDOMEN AND PELVIS WITHOUT INTRAVENOUS CONTRAST: CLINICAL HISTORY: right lower abd inguinal hernia COMPARISON: None TECHNIQUE: Spiral images were obtained through the abdomen and pelvis without intravenous contrast. This CT exam was performed using one or more following dose reduction techniques: Automated exposure control, adjustment of the mA and/or kV according to patient size, or use of iterative reconstruction technique. FINDINGS: Lung Bases: [No acute findings.] Organs:Suboptimal evaluation due to lack of IV contrast. Liver demonstrates hepatic steatosis. Gallbladder spleen pancreas and adrenal glands all appear unremarkable. Kidneys demonstrate no stone or hydronephrosis. Aorta appears normal in caliber.[ GI: Stomach is grossly unremarkable. Small bowel appears nondilated. Colonic diverticulosis.[ Pelvis:[Urinary bladder and prostate gland appear unremarkable.] Peritoneum/Retroperitoneum:No free air or free fluid or lymphadenopathy.[ Abd wall/Bones:No acute findings. Left-sided fat filled inguinal hernia. Osseous structures demonstrate degenerative change.[ CT/CT abdomen pelvis wo con IMPRESSION: No acute process. Impression dictated by: Trent Villafuerte Jr., DAriasOArias 12/13/2024 11:03 AM Dictation Location: [facility] Electronically authenticated by: [id number] Date: 12/13/2024 11:03
[2024-12-13] MEDS: 0.9 % SODIUM CHLORIDE 1,000 ML 1000 ML IV (10:15)
--- NOTE | 2024-12-13 10:15 | ED.BACK1 ---
HPI HPI - Back Pain/Injury General Chief Complaint: Back Pain/Injury Stated Complaint: KIDNEY STONES Time Seen by Provider: 12/13/24 09:42 Source: patient Mode of arrival: walk-in History of Present Illness HPI Narrative: The patient is a 49 years old male is coming to the ER with a 1 month history of being sick, started by coughing and having upper respiratory tract infection symptoms that resolved but he still have some cough, no difficulty breathing but he is complaining of right lower quadrant pain although he thinks that the pain comes from his lower back The patient have no burning with urination he denies any blood in urine although he mentioned having 1 episode of blood in stool that was liquid like no pain or hemorrhoid history No abdominal pain no nausea no vomiting at the moment No fever no chills although initially had 2 symptoms at the beginning of this month Pain in the right lower quadrant is not continuous it comes and goes mostly with coughing Related Data Home Medications ?Medication ?Instructions ?Recorded ?Confirmed amlodipine 10 mg tablet 10 mg PO DAILY 03/06/24 12/13/24 venlafaxine 150 mg 150 mg PO DAILY 03/06/24 12/13/24 capsule,extended release 24 hr Previous Rx's ?Medication ?Instructions ?Recorded ibuprofen 600 mg tablet 600 mg PO Q8H PRN pain #20 tabs 03/06/24 Allergies Allergy/AdvReac Type Severity Reaction Status Date / Time No Known Drug Allergies Allergy Verified 12/13/24 09:44 Opioid HPI Opioid Management Most Recent Opioid Data: Last Pain Scale 6 Today, 10:44 Last MAR Pain Assessment Today, 10:17 Review of Systems ROS Status of ROS 10 or more systems reviewed and unremarkable except as noted in history and below PFSH PFS Social History (Updated 12/13/24 @ 10:33 by Jazzmine Bazzi RN) Within the past year, how often did you have a drink containing alcohol: 2-4 times a month Smoking status: Current some day smoker Non-prescribed substance use: cannabis (any form) Little interest or pleasure in doing things: not at all Feeling down, depressed, or hopeless: not at all Exam Narrative Exam Narrative: Nurses notes and vital signs reviewed and patient is not hypoxic. General: Well-appearing and in no apparent distress. Skin: Warm, dry, no pallor noted. No rash. Head: Normocephalic, atraumatic. Neck: Supple, non-tender. Cardiovascular: Regular Rate and Rhythm without murmur, gallop or rub. Respiratory: No accessory muscle use or respiratory distress. Lungs are clear to auscultation, no wheezing, rales or rhonchi Chest Wall: no tenderness Back: No midline thoracic or lumbar vertebral tenderness. No CVA tenderness but the patient have tenderness upon palpation of the sacral area bilaterally Musculoskeletal: normal ROM, no calf or popliteal tenderness, no lower extremity edema/swelling GI: Abdomen is soft, non-distended. Normal bowel sounds. No masses appreciated. No tenderness to palpation. No rebound, guarding, or rigidity noted. The patient have a small inguinal hernia that is reducible and soft that was more when the patient is coughing and then is reduced. It is not tender Neurological: A&O x4. No cranial nerve dysfunction observed. No truncal ataxia. Moves all extremities. Sensation intact. Psychiatric: Cooperative and interactive. Normal mood and affect. Constitutional Vital Signs, click to edit/add: Last Vital Signs Temp 98.5 F 12/13/24 09:33 Pulse 55 L 12/13/24 10:43 Resp 16 12/13/24 10:43 BP 128/86 12/13/24 10:43 Pulse Ox 97 12/13/24 10:43 O2 Del Method Room Air 12/13/24 10:43 Course Vital Signs Vital signs: Vital Signs Temperature 98.5 F 12/13/24 09:33 Pulse Rate 62 12/13/24 09:33 Respiratory Rate 18 12/13/24 09:33 Blood Pressure 143/90 H 12/13/24 09:33 Pulse Oximetry 99 12/13/24 09:33 Oxygen Delivery Method Room Air 12/13/24 09:33 Temperature 98.5 F 12/13/24 09:33 Pulse Rate 55 L 12/13/24 10:43 Respiratory Rate 16 12/13/24 10:43 Blood Pressure 128/86 12/13/24 10:43 Pulse Oximetry 97 12/13/24 10:43 Oxygen Delivery Method Room Air 12/13/24 10:43 MDM - Back Pain/Injury MDM Narrative Medical decision making narrative: The patient was not drinking enough water because he was concerned that there is Microplasty in the water although he is drinking only Gatorade The patient also CBC and chemistry showed an elevated BUN he was provided with IV fluid in the ER as well as Toradol The patient CT abdomen pelvis showed no acute pathology although the patient does have inguinal hernia on the left side I did notice on clinical examination that the patient have a small inguinal hernia on the right side that was reduced and that was not tender but the patient history of bronchitis mostly caused him to have cough in the last few weeks could have exacerbated that and he does not have any cough at the moment He also have some back pain that mostly muscular he will just continue to supportive care The patient is to follow up with primary care physician in next 2-3 days or to return to the emergency department should any of the signs or symptoms worsen or new symptoms develop. The patient agrees with the following Diagnosis and Treatment plan and the patient will be discharged home. Lab Data Labs: Lab Results 12/13/24 Range/Units 10:02 WBC 7.9 (4.0-11.0) 10^3/uL RBC 5.44 (4.70-6.10) 10^6/uL Hgb 16.6 (14.0-18.0) g/dL Hct 48.0 (42.0-54.0) % MCV 88.2 (80.0-94.0) fL MCH 30.5 (25.9-34.0) pg MCHC 34.6 (29.9-35.2) g/dL RDW 12.3 (11.0-15.0) % Plt Count 275 (150-450) 10^3/uL MPV 9.3 L (9.5-13.5) fL Neut % (Auto) 49.9 (43.0-75.0) % Lymph % (Auto) 36.7 (20.5-60.0) % [place] % (Auto) 9.6 (1.7-12.0) % Eos % (Auto) 1.8 (0.9-7.0) % Baso % (Auto) 1.0 (0.2-2.0) % Neut # (Auto) 3.9 (1.4-6.5) 10^3/uL Lymph # (Auto) 2.9 (1.2-3.8) 10^3/uL [place] # (Auto) 0.8 (0.3-0.8) 10^3/uL Eos # (Auto) 0.1 (0.0-0.7) 10^3/uL Baso # (Auto) 0.1 (0.0-0.1) 10^3/uL Abs Immat Gran (auto) 0.08 H (0.00-0.03) 10^3/uL Imm/Tot Granulo (auto) 1.0 H (0.0-0.5) % Sodium 139 (136-145) mmol/L Potassium 3.8 (3.5-5.1) mmol/L Chloride 103 (98-107) mmol/L Carbon Dioxide 26.7 (21.0-32.0) mmol/L Anion Gap 13.1 BUN 19.0 H (7.0-18.0) mg/dL Creatinine 0.90 (0.70-1.30) mg/dL Est GFR ( Amer) >60 (>=60 mL/min/1.73m^2) Est GFR (Non-Af Amer) >60 (>=60 mL/min/1.73m^2) BUN/Creatinine Ratio 21.1 Glucose 91 (74-106) mg/dL Calcium 9.0 (8.5-10.1) mg/dL Total Bilirubin 0.7 (0.2-1.0) mg/dL AST 27 (15-37) U/L ALT 63 (16-63) U/L Alkaline Phosphatase 86 (46-116) U/L Total Protein 8.0 (6.4-8.2) g/dL Albumin 4.1 (3.4-5.0) g/dL Globulin 3.9 g/dL Albumin/Globulin Ratio 1.1 Discharge Plan Discharge Chief Complaint: Back Pain/Injury Clinical Impression: Inguinal hernia, Back sprain Patient Disposition: Home, Self-Care Time of Disposition Decision: 11:33 Condition: Good Prescriptions / Home Meds: No Action amlodipine 10 mg tablet 10 mg PO DAILY venlafaxine 150 mg capsule,extended release 24hr 150 mg PO DAILY ibuprofen 600 mg tablet 600 mg PO Q8H PRN (Reason: pain) Qty: 20 0RF Print Language: Romanian Instructions: Inguinal Hernia (ED) Referrals: Daniel Call MD [Physician, Family Practice] - 1 week Physician,Non-Staff, [Primary Care Provider] - 1 week
[2024-12-13] MEDS: KETOROLAC TROMETHAMINE 30 MG/ML VIAL 15 MG IVP (10:17)
[2024-12-13 10:33] LABS: Hematocrit 48.0 % (42.0-54.0); Hemoglobin 16.6 g/dL (14.0-18.0); Immature Granulocytes Abs Auto 0.08 10^3/uL (0.00-0.03); Immature Granulocytes Pct Auto 1.0 % (0.0-0.5); Lymphocytes Absolute Auto 2.9 10^3/uL (1.2-3.8); Mean Corpuscular HGB Conc 34.6 g/dL (29.9-35.2); Mean Corpuscular Hemoglobin 30.5 pg (25.9-34.0); Mean Corpuscular Volume 88.2 fL (80.0-94.0); Platelet Count 275 10^3/uL (150-450); Red Blood Count 5.44 10^6/uL (4.70-6.10); White Blood Count 7.9 10^3/uL (4.0-11.0)
[2024-12-13 10:43] VITALS: BP 128/86; PULSE 55; O2SAT 97
[2024-12-13 10:51] LABS: Alanine Aminotransferase 63 U/L (16-63); Albumin Globulin Ratio 1.1; Albumin Level 4.1 g/dL (3.4-5.0); Alkaline Phosphatase 86 U/L (46-116); Anion Gap 13.1; Aspartate Amino Transferase 27 U/L (15-37); Blood Urea Nitrogen 19.0 mg/dL (7.0-18.0); Calcium 9.0 mg/dL (8.5-10.1); Carbon Dioxide 26.7 mmol/L (21.0-32.0); Chloride 103 mmol/L (98-107); Estimated GFR (African America >60 (>=60 mL/min/1.73m^2); Estimated GFR (Non-African Ame >60 (>=60 mL/min/1.73m^2); Globulin 3.9 g/dL; Glucose 91 mg/dL (74-106); Potassium 3.8 mmol/L (3.5-5.1); Sodium 139 mmol/L (136-145); Total Protein 8.0 g/dL (6.4-8.2)
[2024-12-13 12:01] VITALS: BP 146/94; PULSE 60; O2SAT 96
== END 2024-12-13 12:01 | disposition home or self-care (01) ==
PROVIDERS: Emergency Provider Emergency Medicine
DX: S33.8XXA Sprain of other parts of lumbar spine and pelvis, initial encounter (principal); K40.90 Unilateral inguinal hernia, without obstruction or gangrene, not specified as recurrent; X58.XXXA Exposure to other specified factors, initial encounter; F17.200 Nicotine dependence, unspecified, uncomplicated
CPT/HCPCS: 36415; 74176; 80053; 85025; 96374; 99285; J1885